=== PATIENT | female | born 1980 | race Caucasian/White ===

== ENCOUNTER 2020-07-05 02:18 | Emergency (ER) | payer BC ==
[~2020-07-05] VITALS: Ht 162.6 cm; Wt 67.1 kg
--- NOTE | 2020-07-05 02:30 | NUR ---
TO ER BED 04 AMBULATORY C/O PAIN, BURNING, HEMATURIA AND FREQUENCY UPON URINATION SINCE 1999. PT AAOX4 NO ACUTE DISTRESS NOTED, RESP EVEN AND UNLABORED. PENDING ER MD GALLAGHER.
--- NOTE | 2020-07-05 02:45 | NUR ---
URINE SAMPLE COLLECTED AND SENT TO LAB.
[2020-07-05 03:21] LABS: APPEARANCE,URINE SL CLOUDY (CLEAR); BILIRUBIN,URINE NEGATIVE (NEGATIVE); BLOOD, URINE LARGE Ery/uL (NEGATIVE); COLOR,URINE DARK YELLO (YELLOW); KETONES,URINE NEGATIVE (NEGATIVE); LEUKOCYTE ESTERASE ,URINE LARGE (NEGATIVE); NITRITE, URINE POSITIVE (NEGATIVE); PROTEIN,URINE 30 mg/dl (NEGATIVE); UGLUCOSE NEGATIVE (NEGATIVE)
[2020-07-05] MEDS ORDERED: HYDROCODONE/APAP 5/325MG TABLET ONE (03:42)
[2020-07-05] MEDS ORDERED: HYDROCODONE/APAP 5/325MG TABLET PO ONE (04:00)
[2020-07-05 04:08] LABS: BACTERIA,URINE Many /HPF (None Seen); RBC,URINE 51-80 /HPF (0-2); SQUAMOUS EPITHELIAL CELL,UR Few /HPF (None Seen); WBC,URINE 81-100 /HPF (0-3)
[2020-07-05] MEDS ORDERED: LIDOCAINE /MPF 1% VIAL 5 ML VIAL ONE (04:37)
[2020-07-05] MEDS ORDERED: CEFTRIAXONE 1 G VIAL ONE (04:37)
[2020-07-05 04:49] VITALS: BP 127/89
[2020-07-05] MEDS ORDERED: CEFTRIAXONE 1 G VIAL IM ONE (05:00)
[2020-07-05] MEDS ORDERED: IBUPROFEN 600 MG TABLET PO ONE (05:00)
== END 2020-07-05 04:49 | disposition home or self-care (01) ==
LOC: ER 02:22
DX: N30.90 Cystitis, unspecified without hematuria (principal)
CPT/HCPCS: 81001; 84703; 87086; 96372; 99283; J0696; J3490; 81000-TC; 87186-TC